=== PATIENT | male | born 1940 | race Two or more races ===

== ENCOUNTER 2021-07-05 01:17 | Emergency (ER) | payer OTHER ==
[~2021-07-05 01:17] MED LIST: ALL DAY ALLERGY10 M2 PO; CERTAGEN1 EACH PO; CO Q-10200 MG PO; COLCRYS0.6 MG PO; COREG25 MG PO; COZAAR100 MG PO; LIDOCAINE 5% P1 EACH TOP; LUMIFY2.5 ML EYEBOTH; NORVASC5 MG PO; RESTASIS1 EACH EYEBOTH; SALONPAS PATCH1 EAC1 TOP; VITAMIN D400 UNIT PO; ZOVIRAX800 MG PO
== END 2021-07-05 05:22 | disposition home or self-care (01) ==
LOC: FER 01:17
DX: S02.2XXA Fracture of nasal bones, initial encounter for closed fracture (principal); S00.83XA Contusion of other part of head, initial encounter; I10 Essential (primary) hypertension; Z86.73 Personal history of transient ischemic attack (TIA), and cerebral infarction without residual deficits; Z79.82 Long term (current) use of aspirin; W22.8XXA Striking against or struck by other objects, initial encounter; Y92.009 Unspecified place in unspecified non-institutional (private) residence as the place of occurrence of the external cause
CPT/HCPCS: 70450; 70486; 72125